=== PATIENT | male | born 2000 | race Caucasian/White ===

== ENCOUNTER 2020-02-08 12:12 | Emergency (ER) | payer SELFPAY ==
[~2020-02-08] VITALS: Ht 177.8 cm; Wt 86.4 kg
[2020-02-08 12:20] VITALS: BP 136/90; TEMP 97.6
== END 2020-02-08 13:14 | disposition home or self-care (01) ==
LOC: COL.ER 12:12 → EDBD 12:14 → COL.ER 13:14
DX: S60.212A Contusion of left wrist, initial encounter (principal); W19.XXXA Unspecified fall, initial encounter; X50.0XXA Overexertion from strenuous movement or load, initial encounter
CPT/HCPCS: Q4021